=== PATIENT | male | born 1980 | race Caucasian/White ===

== ENCOUNTER 2018-07-23 05:08 | Emergency (ER) | payer OTHER ==
[~2018-07-23] VITALS: Ht 167.6 cm; Wt 91.9 kg
[2018-07-23 05:17] VITALS: BP 142/80; PULSE 66; RESP 18; Ht 167.6 cm; Wt 91.9 kg
--- NOTE | 2018-07-23 06:10 | ERD ---
ER Documentation Chief Complaint Chief Complaint swelling/pain rectal area x 3 days. referred by clinic to r/o abscess HPI 37-year-old male, presents to the emergency department complaining of 3 days with worsening of pain and edema in the rectal area. No fever, no chills. ROS All systems reviewed and are negative except as per history of present illness. Medications Home Meds Active Scripts Ibuprofen* (Motrin*) 600 Mg Tab, 600 MG PO Q6H PRN for PAIN AND OR ELEVATED TEMP, #20 TAB Prov:JUSTICE SANFORD MD 07/23/18 Sulfamethoxazole/Trimethoprim* (Bactrim Ds* Tablet) 1 Each Tablet, 1 TAB PO BID, #14 TAB Prov:JUSTICE SANFORD MD 07/23/18 Cephalexin* (Keflex*) 500 Mg Capsule, 500 MG PO BID for 7 Days, CAP Prov:JUSTICE SANFORD MD 07/23/18 Allergies Allergies: Coded Allergies: No Known Allergies (Verified Allergy, Unknown, 07/23/18) Physical Exam Vitals Vital Signs Date Temp Pulse Resp B/P (MAP) Pulse Ox O2 O2 Flow FiO2 Time Delivery Rate 07/23/18 98.7 66 18 142/80 98 05:17 (100) Physical Exam Const: No acute distress Head: Atraumatic Eyes: Normal Conjunctiva ENT: Normal External Ears, Nose and Mouth. Neck: Full range of motion. No meningismus. Resp: Clear to auscultation bilaterally Cardio: Regular rate and rhythm, no murmurs Abd: Soft, non tender, non distended. Normal bowel sounds. Rectal: 3 x 3 cm perianal area of erythema and fluctuance. Normal sphincter. Skin: No petechiae or rashes Back: No midline or flank tenderness Ext: No cyanosis, or edema Neur: Awake and alert Psych: Normal Mood and Affect Results 24 hrs Current Medications Medications Dose Sig/Kylie Start Time Status Last (Trade) Ordered Route PRN Stop Time Admin Dose Reason Admin Lidocaine 20 ml ONCE ONCE 07/23/18 DC (Xylocaine SC 06:30 07/23/18 1% (Mdv) 20 06:33 ml) Ibuprofen 600 mg ONCE ONCE 07/23/18 (Motrin) PO 07:00 07/23/18 07:01 650 mg ONCE ONCE 07/23/18 Acetaminophen PO 07:00 07/23/18 (Tylenol 07:01 Tab) Procedures/MDM Vital signs stable. Differential diagnosis considered include but not limited to: Cellulitis, abscess, lipoma, neoplasm. Low suspicion for acute systemic infection. Physical examination and clinical presentation consistent most likely with perianal abscess. During the ED course the patient remained stable, no new complaints. The patient received treatment with incision and drainage of the area presenting overall improvement of the symptoms. Incision and drainage: Informed consent obtained, risk and benefits discussed with patient. Indication: Skin abscess Location: Perianal Area cleaned and sterilized with chlorhexidine solution, 2 mL of lidocaine without epi was infiltrated in the area of the incision. 5 mm incision was made with 11 blade scalpel abscess was drained with breaking up loculation with a hemostat. 1/4 packing was placed through the incision in the abscess cavity. The patient tolerated well the procedure without complications. Results and clinical impression discussed with the patientwho agrees with management. The patient is stable to be treated outpatient and will be dis charged home, some side effects of prescribed medications (headache, rash, nausea, vomiting, diarrhea, drowsiness, habituation, bleeding, hypertension, interactions with other medications) were reviewed. The patient was instructed to follow up with the primary care provider in the next 48h. If symptoms persist, worsen or new symptoms develop, then patient should return to the ED immediately. Instructions explained and given directly by me to the patient in [place] with acknowledgment and demonstrated understanding. Disclaimer: Inadvertent spelling and grammatical errors are likely due to EHR/dictation software use and do not reflect on the overall quality of patient care. Also, please note that the electronic time recorded on this note does not necessarily reflect the actual time of the patient encounter. Departure Diagnosis: Primary Impression: Perianal abscess Condition: Stable Additional Instructions: Muchas alyx por [facility] para sabillon servicio. Esperamos que en sabillon visita a la rogerio de emergencia sabillon problema medico haya sido solucionado y que se sienta mucho mejor. Para estar seguros que sabillon mejoria sigue en proceso, le pedimos el favor de hacer debbie melinda de seguimiento medico con sabillon doctor primario en los proximos 2-4 mei. Lleve con usted estos documentos y las medicinas recetadas. Si nuvia sintomas empeoran, NO SE ESPERE, por favor regrese a rogerio de emergencia INMEDIATAMENTE. En oscar que usted no tenga un mdico de atencin primaria: Llame al mdico o clnica comunitaria de referencia que aparece abajo daisy las horas de consultorio para hacer debbie melinda para que le vean. CLINICAS: [facility] [id number] [facility] [phone] [facility] [id number] [facility] [phone] [facility] [phone] [id number] [facility]. [phone] JUSTICE HANSEN MD Jul 23, 2018 06:10
[2018-07-23] MEDS ORDERED: LIDOCAINE 1% (MDV) 20 ML INJ SC ONE (06:30)
[2018-07-23] MEDS ORDERED: CEPH-443 PO (06:53)
[2018-07-23] MEDS ORDERED: SULF1TAB31 PO (06:53)
[2018-07-23] MEDS ORDERED: IBUP-1542 PO (06:53)
[2018-07-23] MEDS ORDERED: ACETAMINOPHEN 325 MG TAB PO ONE (07:00)
[2018-07-23] MEDS ORDERED: IBUPROFEN 600 MG TAB PO ONE (07:00)
== END 2018-07-23 07:42 | disposition home or self-care (01) ==
LOC: FTE 05:08
DX: K61.0 Anal abscess (principal)
CPT/HCPCS: 46050; Z7502; Z7610